=== PATIENT | male | born 1940 | race Caucasian/White ===

== ENCOUNTER 2017-03-02 09:58 | Inpatient (IN) | payer MEDICARE ==
[~2017-03-02] VITALS: Ht 185.4 cm; Wt 112.0 kg
[~2017-03-02 09:58] MED LIST: ASPI81TA82 PO; BIOTCAP PO; CENTTAB9 PO; SAW500CA6 PO; SELE200T2 PO
[2017-03-02 10:01] VITALS: BP 158/71; PULSE 72; RESP 15; TEMP 98.2; O2SAT 98
[2017-03-02] MEDS ORDERED: SODIUM CHLOR 0.9% 1000 ML INJ 1,000 ML IV ONE (10:34)
--- NOTE | 2017-03-02 10:42 | PD ---
HPI Chief Complaint: Laceration/Skin Injury Time Seen by Provider: 10:22 Travel History International Travel<30 days: No Contact w/Intl Traveler<30days: No Traveled to known affect area: No History of Present Illness HPI This patient was walking when he abruptly collapsed and fell. He has no idea why he fell. He was not having any presyncopal symptoms. There is no mechanical trip her stumble that he can remember. He fell and hit his face on the ground. He complains of facial and jaw pain and has a lower lip laceration. He does not have head or neck pain. At the same time as the fall he developed right arm weakness. Duration is one hour. Severity is moderate. No alleviating factors. He has no history of stroke. He takes a daily aspirin. He has no left arm or leg symptoms. No sensory loss or speech slurring or confusion. PFSH Past Medical History Arthritis: No Blood Disorders: No Anxiety: No Depression: No Cancer: Yes (prostate) Cardiovascular Problems: No Diabetes: No Genitourinary: No Hepatitis: Yes (a) Immune Disorder: No Musculoskeletal: Yes (bursitis) Neurologic: No Psychiatric: No Respiratory: No Tetanus Vaccination: Unknown Past Surgical History AICD: No Joint Replacement: No Pacemaker: No Social History Alcohol Use: No Tobacco Use: No Substance Use: No Allergies-Medications (Allergen,Severity, Reaction): Coded Allergies: No Known Allergies (Verified , 03/02/17) Reported Meds & Prescriptions Reported Meds & Active Scripts Active Reported Saw [place] 500 Mg Cap 500 Mg PO DAILY Centrum (Multivitamins) Tab 1 Tab PO DAILY Selenimin-200 (Selenium) 200 Mg Tab 200 Mg PO Biotin 5000 (Biotin) Cap 1 Cap PO Aspir-81 (Aspirin) 81 Mg Tab 81 Mg PO DAILY Review of Systems General / Constitutional: No: Fever Eyes: No: Visual changes HENT: No: Headaches Cardiovascular: No: Chest Pain or Discomfort Respiratory: No: Shortness of Breath Gastrointestinal: No: Abdominal Pain Genitourinary: No: Dysuria Musculoskeletal: Positive: Weakness, Pain Skin: No Rash Neurologic: Positive: Weakness Psychiatric: No: Depression Endocrine: No: Polydipsia Hematologic/Lymphatic: No: Easy Bruising Physical Exam Narrative GENERAL: Well-nourished, well-developed patient in no apparent distress. SKIN: Focused skin assessment reveals no rash and nodules. Skin is Warm and dry. HEAD: Has some swelling tenderness to the right cheek and TMJ area. Has a central lower lip laceration. There is some abrasion to the upper lip and nose. Normocephalic. EYES: Pupils equal and round. No scleral icterus. No injection or drainage. ENT: No nasal bleeding or discharge. Mucous membranes pink and moist. NECK: Trachea midline. No JVD. No midline tenderness CARDIOVASCULAR: Regular rate and rhythm. No murmur appreciated. RESPIRATORY: No accessory muscle use. Clear to auscultation. Breath sounds equal bilaterally. GASTROINTESTINAL: Abdomen soft, non-tender, nondistended. Hepatic and splenic margins not palpable. MUSCULOSKELETAL: No obvious deformities. No clubbing. No cyanosis. No edema. NEUROLOGICAL: Awake and alert. No obvious cranial nerve deficits. Has mild right arm weakness but no other deficit noted. Normal speech. Sensation intact. No facial droop PSYCHIATRIC: Appropriate mood and affect; insight and judgment normal. Data Data Last Documented VS Vital Signs Date Time Temp Pulse Resp B/P (MAP) Pulse Ox O2 Delivery O2 Flow Rate FiO2 03/02/17 10:51 70 16 142/75 (97) 98 Nasal Cannula 2.00 03/02/17 10:01 98.2 Orders Orders Diet Npo (03/02/17 Lunch) Activity Bed Rest (03/02/17 ) Electrocardiogram (03/02/17 ) I-Stat Creatinine (03/02/17 10:34) I-Stat Profile (03/02/17 10:34) Prothrombin Time / Inr (Pt) (03/02/17 10:34) Act Partial Throm Time (Ptt) (03/02/17 10:34) Complete Blood Count With Diff (03/02/17 10:34) Fibrinogen (03/02/17 10:34) Creatine Kinase (Cpk) (03/02/17 10:34) Type And Screen (03/02/17 10:34) Ct Brain W/O Iv Contrast(Rout) (03/02/17 ) Consult Neurology (03/02/17 ) Blood Glucose (03/02/17 10:34) Ecg Monitoring (03/02/17 10:34) Neuro Checks Q2HX12,Q4H (03/02/17 10:34) Nursing Bedside Swallow Assess .ONCE (03/02/17 10:34) Iv Access Insert/Monitor (03/02/17 10:34) NPO (03/02/17 10:34) Oximetry (03/02/17 10:34) Oxygen Administration (03/02/17 10:34) Sodium Chlor 0.9% 1000 Ml Inj (Ns 1000 M (03/02/17 10:34) Resp Oxygen [place] Titrat 1-4 L (03/02/17 10:34) Ct Facial Bones W/O Iv Cont (03/02/17 ) Lidocaine 1% Inj (50 Ml) (Xylocaine 1% I (03/02/17 11:00) (Hub Use Only)Inp Phy Cons/Ref (03/02/17 ) Morphine Inj (Morphine Inj) (03/02/17 12:00) Ondansetron Inj (Zofran Inj) (03/02/17 12:00) Admit Order (Ed Use Only) (03/02/17 12:28) Labs Laboratory Tests Test 03/02/17 09:15 White Blood Count 5.6 TH/MM3 Red Blood Count 4.27 MIL/MM3 Hemoglobin 14.7 GM/DL Bedside Hemoglobin 14.3 G/DL Hematocrit 42.6 % Bedside Hematocrit 42.0 % Mean Corpuscular Volume 100.0 FL Mean Corpuscular Hemoglobin 34.4 PG Mean Corpuscular Hemoglobin Concent 34.4 % Red Cell Distribution Width 12.6 % Platelet Count 184 TH/MM3 Mean Platelet Volume 7.6 FL Neutrophils (%) (Auto) 68.2 % Lymphocytes (%) (Auto) 20.0 % Monocytes (%) (Auto) 7.9 % Eosinophils (%) (Auto) 3.5 % Basophils (%) (Auto) 0.4 % Neutrophils # (Auto) 3.8 TH/MM3 Lymphocytes # (Auto) 1.1 TH/MM3 Monocytes # (Auto) 0.4 TH/MM3 Eosinophils # (Auto) 0.2 TH/MM3 Basophils # (Auto) 0.0 TH/MM3 CBC Comment DIFF FINAL Differential Comment Prothrombin Time 11.3 SEC Prothromb Time International Ratio 1.0 RATIO Activated Partial Thromboplast Time 26.1 SEC Fibrinogen 270 mg/dL Bedside Sodium 141 MMOL/L Bedside Potassium 3.8 MMOL/L Bedside Chloride 106 MMOL/L Bedside Blood Urea Nitrogen 14 MG/DL Bedside Creatinine 0.8 MG/DL Bedside Glucose 141 MG/DL Total Creatine Kinase 89 U/L MDM Medical Decision Making Medical Screen Exam Complete: Yes Emergency Medical Condition: Yes Medical Record Reviewed: Yes Differential Diagnosis CVA, TIA, syncope, facial fracture Narrative Course I have reviewed the patient's electronic medical record. Patient has history of prostate cancer and completed radiation therapy last year. IV placed I called the patient a stroke alert based on his right arm weakness I don't have any other etiology for abrupt onset of right arm weakness in the setting of syncope I sent him to the CT scanner and radiology paged His deficit is mild. He has mild right arm weakness His NIH score will be 1 based on this and no other objective findings Brain CT is negative for hemorrhage Facial bone CT reveals comminuted left mandible fracture CBC normal Metabolic profile is normal Coagulation studies are normal MELCHOR Shravan has repaired his lip laceration I reviewed his EKG which shows sinus rhythm without ectopy Extended cardiac monitoring reveals sinus rhythm without ectopy I discussed in detail with neurologist Dr. Sharma He agreed would not give TPA based on very mild right arm weakness has an isolated deficit I placed a call to medical residents to admit to telemetry unit for neurologic evaluation given his acute neurologic deficit as well as have his mandible fracture addressed Critical Care Narrative Aggregate critical care time was 34 minutes. Time to perform other separately billable procedures was not included in the critical care time. My time did not include minutes spent treating any other patients simultaneously or on activities that did not directly contribute to the patient's treatment. The services I provided to this patient were to treat and/or prevent clinically significant deterioration that could result in: Hemorrhagic contusion, permanent neurologic deficit, brain stem herniation I provided critical care services requiring my management, as noted below: Chart data review, documentation time, medication orders and management, vital sign assessments/reviewing monitor data, ordering and reviewing lab tests, ordering and interpreting/reviewing x-rays and diagnostic studies, care of the patient and discussion of the patient with the admitting physicians. Diagnosis Primary Impression: Ischemic stroke of frontal lobe Additional Impressions: Fracture of mandible Qualified Codes: S02.612A - Fracture of condylar process of left mandible, initial encounter for closed fracture Syncope Qualified Codes: R55 - Syncope and collapse Admitting Information Admitting Physician Requests: Admit Ozzie Card MD Mar 02, 2017 10:41
[2017-03-02 10:51] VITALS: BP 142/75; PULSE 70; RESP 16; O2SAT 98
--- NOTE | 2017-03-02 10:55 | RADRPT ---
EXAM DATE/TIME: 03/02/2017 10:34 [facility] COMPARISON: No previous studies available for comparison. INDICATIONS : Stroke alert, right sided weakness and slurred speech. RADIATION DOSE: 45.83 CTDIvol (mGy) This report was called by Enrique Marvin MD to Dr. Card at 1048 MEDICAL HISTORY : None SURGICAL HISTORY : None. ENCOUNTER: Initial ACUITY: 1 day PAIN SCALE: 0/10 LOCATION: cranial TECHNIQUE: Multiple contiguous axial images were obtained of the head. Using automated exposure control and adj ustment of the mA and/or kV according to patient size, radiation dose was kept as low as reasonably a chievable to obtain optimal diagnostic quality images. DICOM format image data is available electro nically for review and comparison. FINDINGS: CEREBRUM: The ventricles are normal for age. No evidence of midline shift, mass lesion, hemorrhage or acute in farction. No extra-axial fluid collections are seen. POSTERIOR FOSSA: The cerebellum and brainstem are intact. The 4th ventricle is midline. The cerebellopontine angle i s unremarkable. EXTRACRANIAL: The visualized portion of the orbits is intact. SKULL: The calvaria is intact. No evidence of skull fracture. CONCLUSION: 1. No evidence of acute intracranial pathology. No masses are identified. Enrique Marvin MD on March 02, 2017 at 10:47 Board Certified Radiologist. This report was verified electronically.
[2017-03-02] MEDS ORDERED: LIDOCAINE HCL 1% 50 ML VIAL INFIL ONE (11:00)
--- NOTE | 2017-03-02 11:02 | RADRPT ---
EXAM DATE/TIME: 03/02/2017 10:34 [facility] COMPARISON: No previous studies available for comparison. INDICATIONS : Trauma, fall. RADIATION DOSE: 36.48 CTDIvol (mGy) MEDICAL HISTORY : None SURGICAL HISTORY : None. ENCOUNTER: Initial ACUITY: 1 day PAIN SCORE: 0/10 LOCATION: facial TECHNIQUE: Volumetric scanning of the facial bones was performed. Using automated exposure control and adjustme nt of the mA and/or kV according to patient size, radiation dose was kept as low as reasonably achiev able to obtain optimal diagnostic quality images. DICOM format image data is available electronicall y for review and comparison. FINDINGS: ORBITS: The orbital and infraorbital osseous structures are intact. The retroconal structures have a normal configuration. No radiopaque foreign bodies are seen. NASAL BONE: The nasal bone and maxillary spine are intact ZYGOMATIC ARCHES: Symmetric without evidence of fracture. SINUSES: Mild mucoperiosteal thickening, mostly the ethmoid air cells. NASAL CAVITY: The nasal septum is intact and midline. The lacrimal ducts are intact. SOFT TISSUES: There is a contusion/hematoma and probable laceration in the soft tissues overlying the chin. INTRACRANIAL: No intracranial air seen. CRIBIFORM PLATE: Grossly intact. Comminuted fracture seen of the left mandibular ramus and base of the condyle. The fracture is mildly buckled with some resultant lateral apex angulation deformity, for example series 304 image 46. Cond yle articular surface intact. There is evidence of considerable pre-existing bilateral temporomandibu lar joint osteoarthritis. CONCLUSION: 1. Comminuted and mildly displaced fracture of the left mandibular ramus and base of the condyle. 2. Severe bilateral temporomandibular joint osteoarthritis. 3. Submental contusion/hematoma. Haris Yusuf MD on March 02, 2017 at 10:55 Board Certified Radiologist. This report was verified electronically.
[2017-03-02 11:05] LABS: AUTOMATED NEUTROPHIL # 3.8 TH/MM3 (1.8-7.7); BASOPHIL % 0.4 % (0.0-2.0); EOSINOPHIL # 0.2 TH/MM3 (0-0.4); EOSINOPHIL % 3.5 % (0.0-4.0); HEMATOCRIT 42.6 % (39.0-51.0); HEMO FLAGS DIFF FINAL; LYMPHOCYTE # 1.1 TH/MM3 (1.0-4.8); MEAN CORPUSCULAR HEMOGLOBIN 34.4 PG (27.0-34.0); MEAN CORPUSCULAR HGB CONC 34.4 % (32.0-36.0); MONO % 7.9 % (0.0-8.0); NEUT % 68.2 % (16.0-70.0); PLATELET COUNT 184 TH/MM3 (150-450); RED BLOOD COUNT 4.27 MIL/MM3 (4.50-5.90); RED CELL DISTRIBUTION WIDTH 12.6 % (11.6-17.2); WHITE BLOOD COUNT 5.6 TH/MM3 (4.0-11.0)
[2017-03-02 11:11] LABS: I-STAT POTASSIUM 3.8 MMOL/L (3.5-4.9)
[2017-03-02 11:15] LABS: APTT (PATIENT) 26.1 SEC (24.3-30.1); PROTHROMBIN TIME - PATIENT 11.3 SEC (9.8-11.6)
--- NOTE | 2017-03-02 11:35 | PD ---
Physical Exam Time Seen by Provider: 11:10 Data Data Last Documented VS Vital Signs Date Time Temp Pulse Resp B/P (MAP) Pulse Ox O2 Delivery O2 Flow Rate FiO2 03/02/17 10:51 70 16 142/75 (97) 98 Nasal Cannula 2.00 03/02/17 10:01 98.2 Orders Orders Diet Npo (03/02/17 Lunch) Activity Bed Rest (03/02/17 ) Electrocardiogram (03/02/17 ) I-Stat Creatinine (03/02/17 10:34) I-Stat Profile (03/02/17 10:34) Prothrombin Time / Inr (Pt) (03/02/17 10:34) Act Partial Throm Time (Ptt) (03/02/17 10:34) Complete Blood Count With Diff (03/02/17 10:34) Fibrinogen (03/02/17 10:34) Creatine Kinase (Cpk) (03/02/17 10:34) Type And Screen (03/02/17 10:34) Ct Brain W/O Iv Contrast(Rout) (03/02/17 ) Consult Neurology (03/02/17 ) Blood Glucose (03/02/17 10:34) Ecg Monitoring (03/02/17 10:34) Neuro Checks Q2HX12,Q4H (03/02/17 10:34) Nursing Bedside Swallow Assess .ONCE (03/02/17 10:34) Iv Access Insert/Monitor (03/02/17 10:34) NPO (03/02/17 10:34) Oximetry (03/02/17 10:34) Oxygen Administration (03/02/17 10:34) Sodium Chlor 0.9% 1000 Ml Inj (Ns 1000 M (03/02/17 10:34) Resp Oxygen [place] Titrat 1-4 L (03/02/17 10:34) Ct Facial Bones W/O Iv Cont (03/02/17 ) Lidocaine 1% Inj (50 Ml) (Xylocaine 1% I (03/02/17 11:00) (Hub Use Only)Inp Phy Cons/Ref (03/02/17 ) Labs Laboratory Tests Test 03/02/17 09:15 White Blood Count 5.6 TH/MM3 Red Blood Count 4.27 MIL/MM3 Hemoglobin 14.7 GM/DL Bedside Hemoglobin 14.3 G/DL Hematocrit 42.6 % Bedside Hematocrit 42.0 % Mean Corpuscular Volume 100.0 FL Mean Corpuscular Hemoglobin 34.4 PG Mean Corpuscular Hemoglobin Concent 34.4 % Red Cell Distribution Width 12.6 % Platelet Count 184 TH/MM3 Mean Platelet Volume 7.6 FL Neutrophils (%) (Auto) 68.2 % Lymphocytes (%) (Auto) 20.0 % Monocytes (%) (Auto) 7.9 % Eosinophils (%) (Auto) 3.5 % Basophils (%) (Auto) 0.4 % Neutrophils # (Auto) 3.8 TH/MM3 Lymphocytes # (Auto) 1.1 TH/MM3 Monocytes # (Auto) 0.4 TH/MM3 Eosinophils # (Auto) 0.2 TH/MM3 Basophils # (Auto) 0.0 TH/MM3 CBC Comment DIFF FINAL Differential Comment Prothrombin Time 11.3 SEC Prothromb Time International Ratio 1.0 RATIO Activated Partial Thromboplast Time 26.1 SEC Fibrinogen 270 mg/dL Bedside Sodium 141 MMOL/L Bedside Potassium 3.8 MMOL/L Bedside Chloride 106 MMOL/L Bedside Blood Urea Nitrogen 14 MG/DL Bedside Creatinine 0.8 MG/DL Bedside Glucose 141 MG/DL [facility] Medical Record Reviewed: Yes Supervised Visit with ADI: No Narrative Course Patient has a laceration to the inner mucosa of the lower lip, laceration was repaired with absorbable sutures, he verbally consented. Procedures Procedure Narrative LACERATION LOCATION: Lower lip LENGTH: 1.5 cm NUMBER OF STITCHES/ELMER: 8 REPAIR: The area of the laceration was prepped with Betadine and sterilely draped. The laceration was infiltrated with 1% lidocaine. The wound was copiously irrigated and explored without evidence of foreign body, tendon injury or neurovascular injury. The wound was closed using 5-0 fast absorbing chromic simple interrupted. This was a single layer repair. A sterile dressing was applied. The patient was advised to keep the dressing clean and dry. Patient tolerated the procedure well. Shravan Mason Mar 02, 2017 11:35
[2017-03-02] MEDS ORDERED: ONDANSETRON HCL 4 MG/2 ML VIAL IV ONE (12:00)
[2017-03-02] MEDS ORDERED: MORPHINE SULFATE 4 MG/ML INJ IV PUSH ONE (12:00)
[2017-03-02] MEDS ORDERED: HYDROmorphone HCL PF 1 MG/ML VIAL IV PRN (13:15)
[2017-03-02] MEDS ORDERED: SENNOSIDES 8.6 MG TAB PO PRN (13:15)
[2017-03-02] MEDS ORDERED: SODIUM CHLORIDE 0.9% FLUSH 10 ML FLUSH IV FLUSH PRN (13:15)
[2017-03-02] MEDS ORDERED: KETOROLAC TROMETHAMINE 30 MG/ML (IVP) VIAL IVP PRN ×2 (13:15→19:15)
[2017-03-02] MEDS ORDERED: BISACODYL 10 MG SUPP RECTAL PRN (13:15)
[2017-03-02] MEDS ORDERED: LACTULOSE SYRUP 20 GM/30 ML CUP PO PRN (13:15)
[2017-03-02] MEDS ORDERED: MAGNESIUM HYDROXIDE SUSP 30 ML CUP PO PRN (13:15)
[2017-03-02] MEDS ORDERED: MORPHINE SULFATE 4 MG/ML INJ IV PUSH PRN (13:15)
[2017-03-02] MEDS ORDERED: ACETAMINOPHEN 325 MG TAB PO PRN (13:15)
[2017-03-02] MEDS ORDERED: ONDANSETRON HCL 4 MG/2 ML VIAL IVP PRN (13:15)
[2017-03-02] MEDS: SODIUM CHLOR 0.9% 1000 ML INJ 1,000 ML IV SCH (13:15)
[2017-03-02] MEDS ORDERED: NALOXONE HCL 0.4 MG/ML AMP IV PRN ×2 (13:15)
--- NOTE | 2017-03-02 13:31 | HHI.HP ---
HPI Service Family Medicine Primary Care Physician Guy Parker MD Admission Diagnosis stroke alert, L mandible fx, syncope Diagnoses: (1) Fracture of mandible Diagnosis: Principal Chief Complaint: fall with mandibular fracture and lip laceration International Travel<30 Days: No Contact w/Intl Traveler<30days: No Known Affected Area: No History of Present Illness Mr Benitez is a 75 YO male w/PMHx of prostate cancer and recent cataract surgery (October and December) who fell in the [facility] parking lot today breaking his jaw and splitting open his lip. Pt states he might have tripped over something in the parking lot and had his hands full, otherwise he might have caught his fall but is sure he did not have a syncopal or presyncopal episode. Pt is alert and oriented and attended by his who state he has been very healthy all his life. Pt has jaw and lip pain from the fall as well as some right arm stiffness and mild pain. Denies CP, SOB, dizziness, orthopnea, DVT pain, N/V/D. Also denies neuro deficits or hx of falls or syncope or pre-syncope. CT head shows no evidence of CVA; Maxillofacial CT shows comminuted and mildly displaced fracture of the left mandibular ramus and base of the condyle. (Brendon Winter MD R1) Review of Systems Other as per HPI (Brendon Winter MD R1) Past Family Social History Past Medical History prostate cancer Past Surgical History left shoulder septic joint washout 2005 Reported Medications Reported Meds & Active Scripts Active Reported Saw [place] 500 Mg Cap 500 Mg PO DAILY Centrum (Multivitamins) Tab 1 Tab PO DAILY Selenimin-200 (Selenium) 200 Mg Tab 200 Mg PO Biotin 5000 (Biotin) 5 Mg Cap 1 Cap PO Aspir-81 (Aspirin) 81 Mg Tab 81 Mg PO DAILY (Brendon Winter MD R1) Allergies: Coded Allergies: No Known Allergies (Verified , 03/02/17) Active Ordered Medications Current Medications Medications (Trade) Dose Ordered Sig/Dominic Route Start Time Stop Time Status Last Admin Sodium Chloride 1,000 ml @ 100 mls/hr Q10H IV 03/02/17 13:11 03/02/17 13:15 (NS Flush) 2 ml UNSCH PRN IV FLUSH 03/02/17 13:15 (NS Flush) 2 ml BID IV FLUSH 03/02/17 21:00 (Tylenol) 650 mg Q4H PRN PO 03/02/17 13:15 (Zofran Inj) 4 mg Q6H PRN IVP 03/02/17 13:15 (Lovenox Inj) 40 mg Q24H SQ 03/02/17 16:00 Future Hold (Yoselyn-Colace) 1 tab BID PO 03/02/17 21:00 (Milk Of Magnesia Liq) 30 ml Q12H PRN PO 03/02/17 13:15 (Senokot) 17.2 mg Q12H PRN PO 03/02/17 13:15 (Dulcolax Supp) 10 mg DAILY PRN RECTAL 03/02/17 13:15 (Lactulose Liq) 30 ml DAILY PRN PO 03/02/17 13:15 (Narcan Inj) 0.4 mg UNSCH PRN IV 03/02/17 13:15 (Morphine Inj) 2 mg Q3H PRN IV PUSH 03/02/17 13:15 (Dilaudid Pf Inj) 0.5 mg Q3H PRN IV 03/02/17 13:15 (Ofirmev 1000 Mg/ 100 ml Inj) 1,000 mg Q6H IV 03/02/17 17:00 03/03/17 11:01 03/02/17 17:15 (Toradol Inj) 15 mg Q6H PRN IVP 03/02/17 19:15 03/07/17 19:14 Family History Father - HTN Social History No EtOH, tobacco or drugs. Lives with his . 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 (Brendon Winter MD R1) Physical Exam Vital Signs Vital Signs Date Time Temp Pulse Resp B/P (MAP) Pulse Ox O2 Delivery O2 Flow Rate FiO2 03/02/17 10:51 70 16 142/75 (97) 98 Nasal Cannula 2.00 03/02/17 10:15 98 Nasal Cannula 2.00 03/02/17 10:01 98.2 72 15 158/71 (100) 98 Physical Exam GENERAL: This is a well-nourished, well-developed patient, in no apparent distress with a lip laceration. SKIN: No rashes. Cool and dry. HEAD: Atraumatic. Normocephalic. No temporal or scalp tenderness. Lip laceration. Slightly asymmetric smile with less smile on the right. EYES: Pupils equal round and reactive. Extraocular motions intact. No scleral icterus. No injection or drainage. ENT: Nose without bleeding, purulent drainage or septal hematoma. Throat without erythema, tonsillar hypertrophy or exudate. Uvula midline. Airway patent. NECK: Trachea midline. No lymphadenopathy. Supple, nontender, no meningeal signs. CARDIOVASCULAR: Regular rate and rhythm without murmurs, gallops, or rubs. RESPIRATORY: Clear to auscultation. Breath sounds equal bilaterally. No wheezes , rales, or rhonchi. No increased WOB. GASTROINTESTINAL: Abdomen soft, non-tender, nondistended. No hepato-splenomegaly , or palpable masses. No guarding. MUSCULOSKELETAL: Extremities without clubbing, cyanosis, or edema. 5/5 strength in bilateral LEs; however, 4/5 strength in RUE. No joint tenderness, effusion, or edema noted. No calf tenderness. NEUROLOGICAL: Awake and alert. Cranial nerves II through XII intact. Sensory grossly within normal limits. Normal speech. Laboratory Laboratory Tests Test 03/02/17 09:15 White Blood Count 5.6 Red Blood Count 4.27 Hemoglobin 14.7 Bedside Hemoglobin 14.3 Hematocrit 42.6 Bedside Hematocrit 42.0 Mean Corpuscular Volume 100.0 Mean Corpuscular Hemoglobin 34.4 Mean Corpuscular Hemoglobin Concent 34.4 Red Cell Distribution Width 12.6 Platelet Count 184 Mean Platelet Volume 7.6 Neutrophils (%) (Auto) 68.2 Lymphocytes (%) (Auto) 20.0 Monocytes (%) (Auto) 7.9 Eosinophils (%) (Auto) 3.5 Basophils (%) (Auto) 0.4 Neutrophils # (Auto) 3.8 Lymphocytes # (Auto) 1.1 Monocytes # (Auto) 0.4 Eosinophils # (Auto) 0.2 Basophils # (Auto) 0.0 CBC Comment DIFF FINAL Differential Comment Prothrombin Time 11.3 Prothromb Time International Ratio 1.0 Activated Partial Thromboplast Time 26.1 Fibrinogen 270 Bedside Sodium 141 Bedside Potassium 3.8 Bedside Chloride 106 Bedside Blood Urea Nitrogen 14 Bedside Creatinine 0.8 Bedside Glucose 141 Total Creatine Kinase 89 (Brendon Winter MD R1) Result Diagram: 03/02/17 0915 Imaging Last Impressions Maxillofacial CT 03/02/17 0000 Signed Impressions: Service Date/Time: Thursday, March 02, 2017 10:34 - CONCLUSION: 1. Comminuted and mildly displaced fracture of the left mandibular ramus and base of the condyle. 2. Severe bilateral temporomandibular joint osteoarthritis. 3. Submental contusion/hematoma. Haris Yusuf MD Head CT 03/02/17 0000 Signed Impressions: Service Date/Time: Thursday, March 02, 2017 10:34 - CONCLUSION: 1. No evidence of acute intracranial pathology. No masses are identified. Enrique Marvin MD (Brendon Winter MD R1) Caprini VTE Risk Assessment Caprini VTE Risk Assessment: No/Low Risk (score <= 1) VTE Pharm Contraindication: Lovenox held due to surgery on 03/03 (Brendon Winter MD R1) Assessment and Plan Assessment and Plan 76 YO male w/PMHx prostate cancer and left shoulder septic joint in 2005 with fall today vs CVA resulting in mandibular fracture, lip laceration and right arm weakness. Neurology saw in ED and Head CT shows no evidence of CVA. Code Status FULL Discussed Condition With Rajiv Bustos and June (Brendon Winter MD R1) Attending Attestation The patient has been seen and examined. The chart and all resident notes have been reviewed. I agree that inpatient care is appropriate and that a two midnight stay is expected for the reasons documented in the resident history and physical. I have discussed this with the resident and certify the resident s order for inpatient admission. Patient seen and examined. Case reviewed and discussed Please refer to resident H&P for further details regarding HPI, ROS, PMH, SurgHx , FH and SocHx All systems reviewed and neg except as stated in the HPI In summary, patient is a 76yo R handed M presenting after a fall forward onto his face with subsequent displaced mandibular fracture He reports he was walking at [employer] and fell He reports pain is improved with medication Does have some R sided weakness GENERAL: wdwn male, sitting up in bed SKIN: Warm and dry. HEAD: Normocephalic. AT EYES: No scleral icterus. No injection or drainage. ENT: OP clear. Lower lip s/p lac repair. Hemostatic NECK: Supple, trachea midline. No JVD or lymphadenopathy. CARDIOVASCULAR: Regular rate and rhythm without murmurs, gallops, or rubs. RESPIRATORY: Breath sounds equal and clear bilaterally. No accessory muscle use. GASTROINTESTINAL: Abdomen soft, non-tender, nondistended. MUSCULOSKELETAL: No cyanosis, or edema. BACK: Nontender without obvious deformity. No CVA tenderness. NEURO: Awake and alert. Normal speech. Sensation intact and equal bilaterally RUE 4/5, LUE 5/5. Bilateral LE 5/5 A/P: 76yoM admitted with: Displace mandibular fracture Lip laceration R sided weakness Fall Hx Prostate CA OMF consultation Pain control Stroke protocol Neuro consult Patient seen and examined. Case reviewed and discussed Agree with plan of care as discussed with me and documented in the resident note. (Carolyne Bustos MD) Problem List: (1) Fracture of mandible ICD Codes: S02.609A - Fracture of mandible, unspecified, initial encounter for closed fracture Status: Acute Plan: CT showing fracture of mandible -Oromaxillofacial surgery consulted--OR tomorrow--appreciate recs -NPO at midnight -Swallowing intact -Pain control: --Tylenol 1000mg IV --Torodol 15 mg q6h IV PRN pain 1-5 --Morphine 2 mg q4h IV PRN pain 6-10 --Dilaudid 0.1 mg IV PRN breakthru pain -AM CBC and BMP (2) Right arm weakness ICD Codes: R29.898 - Other symptoms and signs involving the musculoskeletal system Status: Acute Plan: Right arm weakness s/p fall vs CVA; decreased strength and active ROM on exam--DDx: CVA vs fall trauma to include rotator cuff tear -Neuro checks q4h to probe for increasing weakness w/negative Head CT -Will assess ROM following jaw surgery tomorrow to probe for possible rotator cuff pathology (3) Lip laceration ICD Codes: S01.511A - Laceration without foreign body of lip, initial encounter Status: Acute Plan: -Repaired in ED -Monitor (4) FEN/GI/PPx Status: Acute Plan: -DVT PPx: Holding Lovenox 40 mg /day until after surgery -NPO at midnight as above; diet after surgery as per surgery recs -Colace and Milk of Magnesia for opioid induced constipation -Zofran IV for nausea (Brendon Winter MD R1) Physician Certification 2 Midnight Certification Type: Admission for Inpatient Services Order for Inpatient Services The services are ordered in accordance with Medicare regulations or non- Medicare payer requirements, as applicable. In the case of services not specified as inpatient-only, they are appropriately provided as inpatient services in accordance with the 2-midnight benchmark. Estimated LOS (days): 2 days is the estimated time the patient will need to remain in the hospital, assuming treatment plan goals are met and no additional complications. Post-Hospital Plan: Home (Brendon Winter MD R1) Problem Qualifiers (1) Fracture of mandible: Qualified Codes: S02.612A - Fracture of condylar process of left mandible, initial encounter for closed fracture (2) Lip laceration: Qualified Codes: S01.511A - Laceration without foreign body of lip, initial encounter Brendon Winter MD R1 Mar 02, 2017 13:31 Carolyne Bustos MD Mar 02, 2017 23:11
--- NOTE | 2017-03-02 13:53 | EKG ---
Date Performed: 03/02/2017 Time Performed: 10:21:14 PTAGE: 76 years EKG: Sinus rhythm MARKED LEFT AXIS DEVIATION PATTERN CONSISTENT WITH PULMONARY DISEASE ABNORMAL ECG Compared to prior tracing no significant change PREVIOUS TRACING : 11/22/2015 06.51 DOCTOR: Felice Byrd Interpretating Date/Time 03/02/2017 13:48:49
--- NOTE | 2017-03-02 14:21 | MB ---
cc: IRINEO CRONIN MD DATE OF CONSULTATION: 03/02/2017 REASON FOR CONSULTATION Stroke Alert. HISTORY OF PRESENT ILLNESS Mr. Waller is a 76-year-old male who presented to the [facility] Emergency Room for what he reports he abruptly collapsed and fell. The patient denies any headache, disorientation, double vision, lightheadedness or racing heart prior to the fall. He thinks that he stepped on uneven ground and he fell on the right side and presented with right arm pain and laceration of his face and jaw. He denies history of seizures or syncope or previous falls.There is no reported loss of bladder control, convulsions or confusional state. This was called as a Stroke Alert by the ED attending. The patient's NIH Stroke Scale was 1. A head CT scan without contrast revealed no evidence of acute intracranial pathology; however, the patient was not deemed a candidate for TPA because of the low NIH Stroke Scale. The patient is on daily aspirin 81 mg. REVIEW OF SYSTEMS A 12-point review of systems is negative except for what is stated in the HPI. PAST MEDICAL HISTORY Prostate cancer, status post radiation. PAST SURGICAL HISTORY Post radiation for prostate cancer. SOCIAL HISTORY Denies alcohol, tobacco or substance abuse. ALLERGIES No known drug allergies. MEDICATIONS 1. Saw [place]. 2. Centrum. 3. Selenium. 4. Biotin. 5. Aspirin 81 mg. FAMILY HISTORY Noncontributory. PHYSICAL EXAMINATION GENERAL: Awake, alert, oriented, in mild distress. HEENT: Swelling and tenderness of the right cheek area. Lower lip laceration and abrasion. Intact hearing. Intact vision. NECK: Trachea in the midline. No signs of meningeal irritation. HEART: Regular rate and rhythm. LUNGS: Clear to auscultation. No wheezes. ABDOMEN: Soft, nondistended. EXTREMITIES: No deformity. No clubbing. No cyanosis. Moves extremities with some pain in the right upper extremity. NEUROLOGIC: Awake, alert, oriented to time, person and place. No dysphasia. No dysarthria. Questionable right facial weakness. Questionable right elbow extension weakness with give-way due to pain. Questionable wrist extension, 5-/ 5. Intact sensation throughout to light touch and temperature. Cerebellar functions are intact. Upper and lower extremity reflexes 2+ bilateral and symmetrical. Plantars right upgoing, left mute. PSYCHIATRIC: Normal behavior. Appropriate mood and affect. No hallucinations. LABORATORY White blood cell count 5.6, hemoglobin 14.7, platelet count 184. INR 1. Sodium 141, potassium 3.8, glucose 148, BUN 14, creatinine 0.8. IMAGING - Head CT scan wo/contrast revealed no evidence of an acute intracranial abnormality. DIAGNOSTIC IMPRESSION 1. TIA versus stroke. 2. Fracture of the mandible. 3. History of prostate cancer, status post radiation PLAN 1. Neuro-checks q.4h. 2. MRI brain. If MRI brain is negative, no need to pursue further stroke work- up unless this is positive then will do carotid ultrasound and echo according to the stroke protocol. I discussed this with the hospitalist and registered nurse. 3. The patient is not a TPA candidate given the low NIH Stroke Scale. 4. DVT prophylaxis. 5. Continue supportive medical and surgical treatment. Thank you for the opportunity to participate in the care of your patient. MD SANDRA Coates/TED /1:32 PM /1:54 PM MAKENZIE
[2017-03-02] MEDS ORDERED: ENOXAPARIN SODIUM 40 MG/0.4 ML SYRINGE SQ SCH (16:00)
[2017-03-02 17:00] VITALS: BP 137/74; PULSE 77; RESP 18; TEMP 98.4; O2SAT 100
[2017-03-02] MEDS: ACETAMINOPHEN 1000 MG/100 ML VIAL IV SCH (17:15)
--- NOTE | 2017-03-02 17:47 | MB ---
cc: BROCK HARO D.D.S. DATE OF CONSULTATION: 03/02/2017 DATE OF : 1940. SURGEON: Brock Haro DDS, maxillofacial surgery. REASON FOR CONSULTATION I was asked to evaluate a 76-year-old white male status post a fall today striking his chin on the ground, sustained a fracture of his left subcondylar / ramus region. They felt the patient may have had a stroke but apparently most of his studies been negative. He is being admitted my plan for him is to take him to the operating room tomorrow. Due to the location of the fracture unable to do an open reduction internal fixation. The only way to treat it is with a closed reduction, by putting his teeth together in some arch bars, and to wire the let the teeth come back together which will align the bones back up, he has an anterior open bite at the moment and will heal this way we are unable to bring his teeth back into occlusion. I explained this to him and his significant other in the room. We will make him NPO after midnight tonight and plan to take him tomorrow for closed reduction of his fracture. LIMA Serra/deidre /5:10 PM /5:33 PM
[2017-03-02] MEDS: DOCUSATE SODIUM 50 MG/SENNA 8.6 MG TAB PO SCH (20:51)
[2017-03-02] MEDS: SODIUM CHLORIDE 0.9% FLUSH 10 ML FLUSH IV FLUSH SCH (20:51)
[2017-03-02 21:56] VITALS: BP 140/72; PULSE 72; RESP 16; TEMP 99.1; O2SAT 98
[2017-03-03] VITALS (7 sets, daily range): BP systolic 109–167; BP diastolic 57–79; PULSE 58–64; RESP 16–18; TEMP 97.6–98.6; O2SAT 94–98
[2017-03-03] MEDS: ACETAMINOPHEN 1000 MG/100 ML VIAL IV SCH ×3 (00:25→11:22)
[2017-03-03] MEDS: SODIUM CHLOR 0.9% 1000 ML INJ 1,000 ML IV SCH ×3 (00:25→19:11)
[2017-03-03] MEDS: DOCUSATE SODIUM 50 MG/SENNA 8.6 MG TAB PO SCH ×2 (07:49→20:59)
[2017-03-03] MEDS: SODIUM CHLORIDE 0.9% FLUSH 10 ML FLUSH IV FLUSH SCH ×2 (07:50→21:00)
[2017-03-03] MEDS ORDERED: CHLORHEXIDINE GLUCONATE 2 % 1 PACK (2 CLOTHS) TOPICAL PRN (08:00)
[2017-03-03] MEDS ORDERED: POVIDONE IODINE 5% (ANTISEPSIS KIT) 4 APPLICATIONS EACH NARE PRN (08:00)
[2017-03-03] MEDS ORDERED: METOPROLOL TARTRATE 25 MG TAB PO PRN (08:00)
[2017-03-03] MEDS ORDERED: INSULIN HUMAN REGULAR 1,000 UNITS/10 ML VIAL SQ PRN (08:00)
[2017-03-03] MEDS ORDERED: LACTATED RINGER'S 1000 ML IV PRN (08:00)
[2017-03-03] MEDS ORDERED: SODIUM CHLORID 0.9% 500 ML IV PRN (08:00)
[2017-03-03 09:54] LABS: AUTOMATED NEUTROPHIL # 5.3 TH/MM3 (1.8-7.7); BASOPHIL % 0.4 % (0.0-2.0); EOSINOPHIL # 0.1 TH/MM3 (0-0.4); EOSINOPHIL % 1.5 % (0.0-4.0); HEMATOCRIT 40.6 % (39.0-51.0); HEMO FLAGS DIFF FINAL; LYMPH % 16.3 % (9.0-44.0); LYMPHOCYTE # 1.2 TH/MM3 (1.0-4.8); MEAN CELL VOLUME 99.9 FL (80.0-100.0); MEAN CORPUSCULAR HEMOGLOBIN 34.1 PG (27.0-34.0); MEAN CORPUSCULAR HGB CONC 34.1 % (32.0-36.0); MONO % 9.2 % (0.0-8.0); NEUT % 72.6 % (16.0-70.0); PLATELET COUNT 176 TH/MM3 (150-450); RED BLOOD COUNT 4.07 MIL/MM3 (4.50-5.90); RED CELL DISTRIBUTION WIDTH 12.8 % (11.6-17.2); WHITE BLOOD COUNT 7.4 TH/MM3 (4.0-11.0)
[2017-03-03 10:04] LABS: BICARBONATE 25.6 MEQ/L (21.0-32.0); POTASSIUM 3.9 MEQ/L (3.5-5.1)
[2017-03-03] MEDS ORDERED: ONDANSETRON HCL 4 MG/2 ML VIAL IV PUSH ONE (12:00)
[2017-03-03] MEDS ORDERED: NEOSTIGMINE 3 MG/3 ML SYR IV ONE (12:00)
[2017-03-03] MEDS ORDERED: LACTATED RINGER'S 1000 ML INJ 1,000 ML IV ONE (12:00)
[2017-03-03] MEDS ORDERED: PROPOFOL 200 MG/20 ML AMP IV ONE (12:00)
--- NOTE | 2017-03-03 12:29 | RADRPT ---
EXAM DATE/TIME: 03/03/2017 09:08 [place] COMPARISON: No previous studies available for comparison. INDICATIONS : Altered mental status. MEDICAL HISTORY : Carcinoma, prostate. SURGICAL HISTORY : Left shoulder ENCOUNTER: Initial ACUITY: 2 day PAIN SCORE: 2/10 LOCATION: head TECHNIQUE: Multiplanar, multisequence MRI of the brain was performed without contrast. FINDINGS: CEREBRUM: The ventricles are normal for age. No evidence of midline shift, mass lesion, hemorrhage or acute in farction. No extraaxial fluid collections are seen. The pituitary gland and suprasellar cistern are normal in configuration. WHITE MATTER: No significant signal abnormalities are seen in the white matter. POSTERIOR FOSSA: The cerebellum and brainstem are intact. The 4th ventricle is midline. The cerebellopontine angle is unremarkable. The cerebellar tonsils are normal in position. DIFFUSION IMAGING: No focal areas of restricted diffusion are seen. No evidence of acute infarction. EXTRACRANIAL: The visualized portions of the orbits and paranasal sinuses are unremarkable. CONCLUSION: Negative MRI of the brain without contrast. Jordy Upton MD on March 03, 2017 at 12:15 Board Certified Radiologist. This report was verified electronically.
--- NOTE | 2017-03-03 15:11 | HHI.FPPN ---
Subjective Remarks Mr Benitez is feeling better today, still with pain in his jaw and wants surgery to come fix it right away. He is taking PO, ambulating, voiding, but no BM or flatus. He still has some weakness of his RUE from the elbow to the fingers, but denies soreness/tenderness near the rotator cuff or any neurological deficits. AFVSS. He denies CP, SOB, N/V/D, and DVT pain. He sustained a small laceration on the lateral left knee during the fall yesterday with a healing scab. (Brendon Winter MD R1) Objective Vitals Vital Signs Date Time Temp Pulse Resp B/P (MAP) Pulse Ox O2 Delivery O2 Flow Rate FiO2 03/03/17 08:00 98.6 63 18 136/72 (93) 95 03/03/17 06:30 98.5 64 18 136/61 (86) 94 03/03/17 01:56 98.6 62 16 109/57 (74) 95 03/02/17 21:56 99.1 72 16 140/72 (94) 98 03/02/17 17:00 98.4 77 18 137/74 (95) 100 03/02/17 16:38 67 15 99 Nasal Cannula 2.00 I/O 03/02/17 03/02/17 03/02/17 03/03/17 03/03/17 03/03/17 07:00 15:00 23:00 07:00 15:00 23:00 Intake Total 400 ml Output Total 300 ml Balance 400 ml -300 ml Intake IV Total 400 ml Output Urine Total 300 ml # Bowel Movements 0 (Brendon Winter MD R1) Result Diagram: 03/03/17 0842 03/03/17 0842 Imaging Last Impressions Brain MRI 03/03/17 0000 Signed Impressions: Service Date/Time: Friday, March 03, 2017 09:08 - CONCLUSION: Negative MRI of the brain without contrast. Jordy Upton MD Maxillofacial CT 03/02/17 0000 Signed Impressions: Service Date/Time: Thursday, March 02, 2017 10:34 - CONCLUSION: 1. Comminuted and mildly displaced fracture of the left mandibular ramus and base of the condyle. 2. Severe bilateral temporomandibular joint osteoarthritis. 3. Submental contusion/hematoma. Haris Yusuf MD Head CT 03/02/17 0000 Signed Impressions: Service Date/Time: Thursday, March 02, 2017 10:34 - CONCLUSION: 1. No evidence of acute intracranial pathology. No masses are identified. Enrique Marvin MD Objective Remarks GENERAL: Well-nourished, well-developed patient in NAD. SKIN: Warm and dry. Healing scab on left lateral knee. HEAD: Normocephalic. Healing laceration of midline lower lip. EYES: No scleral icterus. No injection or drainage. NECK: Supple, trachea midline. No JVD or lymphadenopathy. CARDIOVASCULAR: Regular rate and rhythm without murmurs, gallops, or rubs. RESPIRATORY: Breath sounds equal bilaterally. No accessory muscle use. GASTROINTESTINAL: Abdomen soft, non-tender, nondistended. EXTREMITIES: No cyanosis, or edema. Strength 5/5 in all extremities except right arm below the elbow 4/5 strength and 4/5 right hand manager regional strength NEUROLOGICAL: Awake, alert, and oriented x 3. Non-focal. Medications and IVs Current Medications Medications (Trade) Dose Ordered Sig/Dominic Route Start Time Stop Time Status Last Admin Sodium Chloride 1,000 ml @ 100 mls/hr Q10H IV 03/02/17 13:11 03/03/17 00:25 (NS Flush) 2 ml UNSCH PRN IV FLUSH 03/02/17 13:15 (NS Flush) 2 ml BID IV FLUSH 03/02/17 21:00 03/03/17 07:50 (Tylenol) 650 mg Q4H PRN PO 03/02/17 13:15 (Zofran Inj) 4 mg Q6H PRN IVP 03/02/17 13:15 (Lovenox Inj) 40 mg Q24H SQ 03/02/17 16:00 Future Hold (Yoselyn-Colace) 1 tab BID PO 03/02/17 21:00 03/02/17 20:51 (Milk Of Magnesia Liq) 30 ml Q12H PRN PO 03/02/17 13:15 (Senokot) 17.2 mg Q12H PRN PO 03/02/17 13:15 (Dulcolax Supp) 10 mg DAILY PRN RECTAL 03/02/17 13:15 (Lactulose Liq) 30 ml DAILY PRN PO 03/02/17 13:15 (Narcan Inj) 0.4 mg UNSCH PRN IV 03/02/17 13:15 (Morphine Inj) 2 mg Q3H PRN IV PUSH 03/02/17 13:15 (Dilaudid Pf Inj) 0.5 mg Q3H PRN IV 03/02/17 13:15 (Toradol Inj) 15 mg Q6H PRN IVP 03/02/17 19:15 03/07/17 19:14 Lactated Ringer's 1,000 ml @ 30 mls/hr Q24H PRN IV 03/03/17 08:00 03/06/17 07:59 Sodium Chloride 500 ml @ 30 mls/hr [id number] PRN IV 03/03/17 08:00 03/06/17 07:59 (Lopressor) 25 mg [employer] PRN PO 03/03/17 08:00 03/06/17 07:59 (Betadine 5% Antisepsis Kit) 1 applic [employer] PRN EACH NARE 03/03/17 08:00 03/06/17 07:59 (Chlorhexidine 2% Cloth) 3 pack [employer] PRN TOPICAL 03/03/17 08:00 03/06/17 07:59 (NovoLIN R INJ) See Protocol Table ... [employer] PRN SQ 03/03/17 08:00 03/06/17 07:59 (Brendon Winter MD R1) Urinary Catheter: No (Brendon Winter MD R1) A/P Assessment and Plan 76 YO male w/PMHx prostate cancer and left shoulder septic joint in 2005 with fall today vs CVA resulting in mandibular fracture, lip laceration and right arm weakness. Neurology saw in ED and Head CT shows no evidence of CVA. (Brendon Winter MD R1) Attending Attestation Patient seen and examined. Case reviewed and discussed Agree with plan of care as discussed with me and documented in the resident note. (Carolyne Bustos MD) Problem List: (1) Fracture of mandible ICD Codes: S02.609A - Fracture of mandible, unspecified, initial encounter for closed fracture Status: Acute Plan: CT showing fracture of mandible. To OR this afternoon. -Oromaxillofacial surgery consulted--OR tomorrow--appreciate recs -NPO at midnight -Swallowing intact -Pain control: --Tylenol 1000mg IV --Torodol 15 mg q6h IV PRN pain 1-5 --Morphine 2 mg q4h IV PRN pain 6-10 --Dilaudid 0.1 mg IV PRN breakthru pain -AM CBC and BMP wnl -PT/OT following surgery (2) Right arm weakness ICD Codes: R29.898 - Other symptoms and signs involving the musculoskeletal system Status: Acute Plan: Right arm weakness s/p fall vs CVA; decreased strength and active ROM on exam--DDx: CVA vs fall trauma to include rotator cuff tear; CVA ruled out. [employer] strength on right hand and arm 4/5, but pt denies any pain or decrease in shoulder strength -Will follow Right forearm/hand weakness; ROM improving (3) Lip laceration ICD Codes: S01.511A - Laceration without foreign body of lip, initial encounter Status: Acute Plan: -Repaired in ED; wound intact and healing well -Monitor (4) FEN/GI/PPx Status: Acute Plan: -DVT PPx: Holding Lovenox 40 mg /day until after surgery -NPO for surgery; diet after surgery as per surgery recs -Colace and Milk of Magnesia for opioid induced constipation -Zofran IV for nausea (Brendon Winter MD R1) Problem Qualifiers (1) Fracture of mandible: Qualified Codes: S02.612A - Fracture of condylar process of left mandible, initial encounter for closed fracture (2) Lip laceration: Qualified Codes: S01.511A - Laceration without foreign body of lip, initial encounter Brendon Winter MD R1 Mar 03, 2017 15:11 Carolyne Bustos MD Mar 05, 2017 08:23
[2017-03-03] MEDS ORDERED: LIDOCAINE 2%/EPINEPHrine PF 1:200,000 20ML SDV ONE (15:34)
[2017-03-03] MEDS ORDERED: CHLORHEXIDINE GLUCONATE 0.12% 15 ML CUP ONE (15:34)
[2017-03-03] MEDS ORDERED: BUPIVACAINE/EPINEPHRINE 0.5% 50 ML VIAL ONE (15:34)
--- NOTE | 2017-03-03 17:13 | HHI.PR ---
Review/Management Diagnosis 1. Fall Possible etiology may be, orthostatic, cardiac, vs accidental [patient is adamant that this was the case, states that he was aware that he was falling due to uneven ground]. 2. Fracture of the mandible. 3. History of prostate cancer, status post radiation Plan 1. Non-focal neurologic exam 2. Negative neurologic testing for an acute intracranial abnormality 3. DVT prophylaxis. 4. Continue supportive medical and surgical treatment. 5. No further neurologic testing is warranted at this time 5. Please call for questions Diagnosis/Plan: Subjective Subjective Comments No acute events reported MRI brain was unremarkable for an acute intracranial lesion is at bed side I explained to them the finding on the brain MRI and the current neurologic status Active Medications Current Medications Medications (Trade) Dose Ordered Sig/Dominic Route Start Time Stop Time Status Last Admin Sodium Chloride 1,000 ml @ 100 mls/hr Q10H IV 03/02/17 13:11 03/03/17 00:25 (NS Flush) 2 ml UNSCH PRN IV FLUSH 03/02/17 13:15 (NS Flush) 2 ml BID IV FLUSH 03/02/17 21:00 03/03/17 07:50 (Tylenol) 650 mg Q4H PRN PO 03/02/17 13:15 (Zofran Inj) 4 mg Q6H PRN IVP 03/02/17 13:15 (Lovenox Inj) 40 mg Q24H SQ 03/02/17 16:00 Future Hold (Yoselyn-Colace) 1 tab BID PO 03/02/17 21:00 03/02/17 20:51 (Milk Of Magnesia Liq) 30 ml Q12H PRN PO 03/02/17 13:15 (Senokot) 17.2 mg Q12H PRN PO 03/02/17 13:15 (Dulcolax Supp) 10 mg DAILY PRN RECTAL 03/02/17 13:15 (Lactulose Liq) 30 ml DAILY PRN PO 03/02/17 13:15 (Narcan Inj) 0.4 mg UNSCH PRN IV 03/02/17 13:15 (Morphine Inj) 2 mg Q3H PRN IV PUSH 03/02/17 13:15 (Dilaudid Pf Inj) 0.5 mg Q3H PRN IV 03/02/17 13:15 (Toradol Inj) 15 mg Q6H PRN IVP 03/02/17 19:15 03/07/17 19:14 Lactated Ringer's 1,000 ml @ 30 mls/hr Q24H PRN IV 03/03/17 08:00 03/06/17 07:59 Sodium Chloride 500 ml @ 30 mls/hr [id number] PRN IV 03/03/17 08:00 03/06/17 07:59 (Lopressor) 25 mg DYEING MACHINE FEEDER PRN PO 03/03/17 08:00 03/06/17 07:59 (Betadine 5% Antisepsis Kit) 1 applic DYEING MACHINE FEEDER PRN EACH NARE 03/03/17 08:00 03/06/17 07:59 (Chlorhexidine 2% Cloth) 3 pack DYEING MACHINE FEEDER PRN TOPICAL 03/03/17 08:00 03/06/17 07:59 (NovoLIN R INJ) See Protocol Table ... DYEING MACHINE FEEDER PRN SQ 03/03/17 08:00 03/06/17 07:59 Allergies Allergies Coded Allergies No Known Allergies (Verified03/02/17) Review of Systems All other ROS: ROS reviewed as documented in chart Exam I&O / VS Vital Signs Date Time Temp Pulse Resp B/P (MAP) Pulse Ox O2 Delivery O2 Flow Rate FiO2 03/03/17 12:00 98.2 62 18 142/74 (96) 95 03/03/17 08:00 98.6 63 18 136/72 (93) 95 03/03/17 06:30 98.5 64 18 136/61 (86) 94 03/03/17 01:56 98.6 62 16 109/57 (74) 95 03/02/17 21:56 99.1 72 16 140/72 (94) 98 Exam Comments GENERAL: Awake, alert, oriented, not in apparent distress. HEENT: Swelling and tenderness of the right cheek area. Lower lip laceration and abrasion. Intact hearing. Intact vision. NECK: Trachea in the midline. No signs of meningeal irritation. HEART: Regular rate and rhythm. LUNGS: Clear to auscultation. No wheezes. ABDOMEN: Soft, nondistended. EXTREMITIES: No deformity. No clubbing. No cyanosis. Moves extremities with some pain in the right upper extremity. NEUROLOGIC: Awake, alert, oriented to time, person and place. No dysphasia. No dysarthria. limitation in neurologic assessment of muscle strength secondary to pain at left UE, but grossly 5/5, Intact sensation throughout to light touch and temperature. Cerebellar functions are intact. Upper and lower extremity reflexes 2+ bilateral and symmetrical. PSYCHIATRIC: Normal behavior. Appropriate mood and affect. No hallucinations. Objective Radiology Results Last 72 hours Impressions Brain MRI 03/03/17 0000 Signed Impressions: Service Date/Time: Friday, March 03, 2017 09:08 - CONCLUSION: Negative MRI of the brain without contrast. Jordy Upton MD Maxillofacial CT 03/02/17 0000 Signed Impressions: Service Date/Time: Thursday, March 02, 2017 10:34 - CONCLUSION: 1. Comminuted and mildly displaced fracture of the left mandibular ramus and base of the condyle. 2. Severe bilateral temporomandibular joint osteoarthritis. 3. Submental contusion/hematoma. Haris Yusuf MD Head CT 03/02/17 0000 Signed Impressions: Service Date/Time: Thursday, March 02, 2017 10:34 - CONCLUSION: 1. No evidence of acute intracranial pathology. No masses are identified. Enrique Marvin MD Micro and Labs Laboratory Tests Test 03/03/17 08:42 White Blood Count 7.4 Red Blood Count 4.07 Hemoglobin 13.9 Hematocrit 40.6 Mean Corpuscular Volume 99.9 Mean Corpuscular Hemoglobin 34.1 Mean Corpuscular Hemoglobin Concent 34.1 Red Cell Distribution Width 12.8 Platelet Count 176 Mean Platelet Volume 7.3 Neutrophils (%) (Auto) 72.6 Lymphocytes (%) (Auto) 16.3 Monocytes (%) (Auto) 9.2 Eosinophils (%) (Auto) 1.5 Basophils (%) (Auto) 0.4 Neutrophils # (Auto) 5.3 Lymphocytes # (Auto) 1.2 Monocytes # (Auto) 0.7 Eosinophils # (Auto) 0.1 Basophils # (Auto) 0.0 CBC Comment DIFF FINAL Differential Comment Blood Urea Nitrogen 11 Creatinine 0.88 Random Glucose 121 Calcium Level 8.5 Sodium Level 139 Potassium Level 3.9 Chloride Level 106 Carbon Dioxide Level 25.6 Anion Gap 7 Estimat Glomerular Filtration Rate 85 Mayela Sharma MD Mar 03, 2017 17:13
[2017-03-03] MEDS ORDERED: ceFAZolin INJ 1,000 MG VIAL ONE (17:37)
--- NOTE | 2017-03-03 19:03 | HHI.PR ---
Immediate Post Op Note Procedure Date: Mar 03, 2017 Pre Op Diagnosis: left subcondylar fracture Post Op Diagnosis: Surgeon: Brock Weeks Television Program Director(s): crispin meyer Procedure: closed reduction left subcondylar fracture Complications: none Specimen(s) removed: none Estimated blood loss: 10 cc Anesthesia: General, Local (2%lidocaiine with 1:200,000 epi 6 cc) Drains: None Patient to: PACU Patient Condition: Good Date/Time of Procedure: SEE SURGICAL CARE RECORD Crispin Meyer DMD Mar 03, 2017 19:03
[2017-03-03] MEDS ORDERED: MIDAZOLAM HCL 2 MG/2 ML VIAL ONE (19:18)
[2017-03-03] MEDS ORDERED: DO NOT ADM ANY ANTICOAGULANT DRUGS PRN (19:18)
[2017-03-03] MEDS ORDERED: MORPHINE SULFATE 4 MG/ML INJ IV PRN (19:30)
[2017-03-03] MEDS ORDERED: ACETAMINOPHEN 325MG/HYDROcodone 7.5MG/15ML UDC PO PRN (19:30)
[2017-03-03] MEDS ORDERED: MIDAZOLAM HCL 2 MG/2 ML VIAL IV ONE (19:30)
[2017-03-03] MEDS ORDERED: FAMOTIDINE 20 MG TAB PO ONE (19:30)
[2017-03-03] MEDS ORDERED: DEXAMETHASONE SOD PHOS 4 MG/ML VIAL IV ONE (19:30)
[2017-03-04 00:54] VITALS: BP 138/76; PULSE 65; RESP 18; TEMP 97.6; O2SAT 97
[2017-03-04] MEDS: SODIUM CHLOR 0.9% 1000 ML INJ 1,000 ML IV SCH (05:38)
[2017-03-04 06:05] VITALS: BP 146/78; PULSE 76; RESP 18; TEMP 97.2; O2SAT 94
[2017-03-04 08:30] VITALS: BP 147/72; PULSE 75; RESP 18; TEMP 97.2; O2SAT 92
--- NOTE | 2017-03-04 10:07 | MP ---
cc: BROCK HARO D.D.S., ROGER DMD DATE OF SURGERY 03/03/2017 DATE OF 1940 PREOPERATIVE DIAGNOSIS Left subcondylar fracture POSTOPERATIVE DIAGNOSIS Left subcondylar fracture PROCEDURE Closed reduction of subcondylar neck fracture. SURGEON Brock Haro DDS and Crispin Meyer DMD ANESTHESIA General anesthesia by nasotracheal tube FLUIDS 500 cc crystalloid SPECIMEN, COMPLICATIONS AND JUSTIFICATION Mr. Waller is a 76-year-old gentleman who fell while carrying some stuff, hit the ground and sustained a blow to his chin and a cut through his lip which was closed in the OR as well with 3-0 chromic gut. He sustained a left subcondylar fracture with an anterior open bite at that time. Discussion with the patient, plan was to go to the OR to put him back in as a mixed dentition so we will place an arch bar across the anterior two-thirds of the teeth. PROCEDURE On 03/03, he presents today to the [facility] area, identified by his name and his bracelet, brought back to OR #8. He was intubated by Anesthesia nasally, tube secured in position. The patient was given local anesthesia with 2% Xylocaine with epinephrine 1:200,000 epinephrine a total of 6 cc in the vestibule areas. Bertrand arch bars placed on the maxilla and mandible. Patient placed in maxillary mandibular fixation with 24-gauge wire from premolar to premolar. Three vertical wires placed for reduction of the fixation. Closure of the lip was done with 3-0 chromic gut in the lower lip. The patient was extubated and taken to the Recovery Room in stable condition. LIMA Serra/MOON /7:01 PM /9:44 AM
[2017-03-04 12:33] VITALS: BP 134/69; PULSE 66; RESP 18; TEMP 97.5; O2SAT 92
[2017-03-04 14:00] VITALS: O2SAT 96
--- NOTE | 2017-03-04 14:17 | HHI.DCPOC ---
Discharge Care Plan Diagnosis: (1) Fracture of mandible Goals to Promote Your Health * To prevent worsening of your condition and complications * To maintain your health at the optimal level Directions to Meet Your Goals Take your medications as prescribed Follow your dietary instruction Follow activity as directed Keep your appointments as scheduled Take your immunizations and boosters as scheduled If your symptoms worsen call your PCP, if no PCP go to Urgent Care Center or Emergency Room Smoking is Dangerous to Your Health. Avoid second hand smoke Call the 24-hour hour crisis hotline for domestic abuse at Abel Espinal MD, R3 Mar 04, 2017 14:17
[2017-03-04] MEDS ORDERED: HYDR1SOL6 PO (14:29)
--- NOTE | 2017-03-04 15:18 | HHI.FPPN ---
Subjective Remarks Mr. Waller was afebrile with intermittent HTN overnight; O2 saturations 92-97% on RA. Patient accompanied by his who supplemented history; patient has not reported pain postoperatively following mandibular surgery. Patient's unknowingly gave him smoothie this morning which he tolerated well. Patient his questioned regarding O2 saturation of 92%; patient has not had any cough or shortness of breath; patient walks well at home without any exertional symptoms. No chest pain, abdominal pain, or dysuria. Patient has not had BM but frequently goes 4 days between BM. Patient/ report awareness of stool softeners/motility agents but that he does not request them currently. (Abel Espinal MD, R3) Objective Vitals Vital Signs Date Time Temp Pulse Resp B/P (MAP) Pulse Ox O2 Delivery O2 Flow Rate FiO2 03/04/17 14:00 96 03/04/17 12:33 97.5 66 18 134/69 (90) 92 03/04/17 08:30 97.2 75 18 147/72 (97) 92 03/04/17 06:05 97.2 76 18 146/78 (100) 94 03/04/17 00:54 97.6 65 18 138/76 (96) 97 03/03/17 21:40 97.6 58 16 167/79 (108) 97 03/03/17 21:30 98 Nasal Cannula 1.00 03/03/17 19:30 54 9 161/77 (105) 98 Nasal Cannula 1 03/03/17 19:15 54 9 161/79 (106) 100 Nasal Cannula 3 03/03/17 19:12 97.3 56 9 162/74 (103) 100 Simple Mask 8 03/03/17 18:55 98.4 60 18 136/76 (96) 96 I/O 03/03/17 03/03/17 03/03/17 03/04/17 03/04/17 03/04/17 07:00 15:00 23:00 07:00 15:00 23:00 Intake Total 1300 ml Output Total 300 ml 10 ml 250 ml Balance -300 ml 1290 ml -250 ml Intake Oral 0 ml Other 1300 ml Output Urine Total 300 ml 250 ml Estimated Blood Loss 10 ml # Voids 8 1 # Bowel Movements 0 0 (Abel Espinal MD, R3) Result Diagram: 03/03/17 0842 03/03/17 0842 Imaging Last Impressions Brain MRI 03/03/17 0000 Signed Impressions: Service Date/Time: Friday, March 03, 2017 09:08 - CONCLUSION: Negative MRI of the brain without contrast. Jordy Upton MD Maxillofacial CT 03/02/17 0000 Signed Impressions: Service Date/Time: Thursday, March 02, 2017 10:34 - CONCLUSION: 1. Comminuted and mildly displaced fracture of the left mandibular ramus and base of the condyle. 2. Severe bilateral temporomandibular joint osteoarthritis. 3. Submental contusion/hematoma. Haris Yusuf MD Head CT 03/02/17 0000 Signed Impressions: Service Date/Time: Thursday, March 02, 2017 10:34 - CONCLUSION: 1. No evidence of acute intracranial pathology. No masses are identified. Enrique Marvin MD Objective Remarks GENERAL: Well-nourished, well-developed patient in NAD. SKIN: Warm and dry. Healing scab on left lateral knee. HEAD: Normocephalic. Healing laceration of midline lower lip. Teeth/oral cavity: wire in place; mouth can only partially open EYES: No scleral icterus. No injection or drainage. EOM grossly I NECK: Supple, trachea midline. No JVD or lymphadenopathy. CARDIOVASCULAR: Regular rate and rhythm without murmurs. No LE edema RESPIRATORY: CTAB; normal rate GASTROINTESTINAL: Abdomen soft, non-tender, nondistended. Normal BS EXTREMITIES: Strength 5/5 in extremities with exception of right arm below the elbow 4/5 strength and 4/5 right hand sr. payroll processor strength; patient able to elevate R arm above head after initial assistance from L UE in initiating movement. NEUROLOGICAL: Awake, alert, and oriented. Speech in short phrases due to impaired mouth mobility due to wiring. CN grossly intact. Grossly normal peripheral motor and sensory function with exception of right upper extremity weakness (Abel Espinal MD, R3) A/P Assessment and Plan 76 YO male w/PMHx prostate cancer and left shoulder septic joint in 2005 with fall resulting in mandibular fracture, lip laceration and right arm weakness Discharge Planning When discharged today on oral pain medication and follow up with OMFS next week (Abel Espinal MD, R3) Attending Attestation Patient seen and examined. Case reviewed and discussed Agree with plan of care as discussed with me and documented in the resident note. (Carolyne Bustos MD) Problem List: (1) Fracture of mandible ICD Codes: S02.609A - Fracture of mandible, unspecified, initial encounter for closed fracture Status: Acute Plan: Impression: Fall injury resulting mandibular injury. CT on admission: Comminuted and mildly displaced fracture of left mandibular ramus in base of condyle. Severe bilateral temporomandibular joint osteoarthritis. Submental contusion/hematoma -OMFS consulted; POD 1 following subcondylar neck fracture by Dr. Weeks -Clear liquid diet; progress to full liquid -Pain control with liquid hydrocodone/acetaminophen and morphine as needed -Plan for follow-up with Dr. Weeks in office in 1 week (2) Right arm weakness ICD Codes: R29.898 - Other symptoms and signs involving the musculoskeletal system Status: Acute Plan: Impression: Right arm weakness s/p fall; decreased strength and active ROM on exam--DDx: CVA vs fall trauma to include rotator cuff tear; CVA ruled out. Water Softener Servicer strength on right hand and arm 4/5, but pt denies any pain or decrease in shoulder strength CT head on admission- no evidence of acute intracranial pathology; no masses identified MRI brain w/ contrast- negative Reportedly negative trauma x-rays of right upper extremity; not in-EMR -Neurology consulted due to concern for possible CVA -Continue supportive medical/surgical treatment; no further neurologic testing warranted at this time due to negative neurologic testing (MRI) -PT consulted; no PT recommended (3) Lip laceration ICD Codes: S01.511A - Laceration without foreign body of lip, initial encounter Status: Acute Plan: -Repaired in ED; wound intact and healing well -Monitor (4) HTN (hypertension) ICD Codes: I10 - Essential (primary) hypertension Plan: Impression: Intermittent mild hypertension during hospitalization; not on medication. Discussed with patient/; they check his pressure at home and it is usually below systolic of 130/140 -Discussed need to monitor and consider follow-up with PCP upon discharge (5) Oxygen saturation greater than 90% ICD Codes: R06.89 - Other abnormalities of breathing Plan: Impression: Intermittent O2 sat 92% on room air during hospitalization; no known pulmonary disease. Suspect atelectasis and/or nasal congestion with impaired inspiration due to mouth requiring -Discussed finding with patient; patient's will continue to check O2 sat at home and follow-up with PCP -Discussed with nursing staff; will recheck O2 sat and consider home O2 walk test/XR/further evaluation if again low (6) FEN/GI/PPx Status: Acute Plan: -DVT PPx: ambulatory without need for anticoagulation at home; anticipate discharge today -Diet: Full liquid Electrolytes on admission WNL with exception of mild hyperglycemia -Colace and Milk of Magnesia for opioid induced constipation -Zofran IV for nausea (Abel Espinal MD, R3) Remarks Discussed case with Dr. Weeks prior to knowledge of written orders in chart; patient cleared for discharge with plans to f/u in 1 week (Abel Espinal MD, R3) Problem Qualifiers (1) Fracture of mandible: Qualified Codes: S02.612A - Fracture of condylar process of left mandible, initial encounter for closed fracture (2) Lip laceration: Qualified Codes: S01.511A - Laceration without foreign body of lip, initial encounter Abel Espinal MD, R3 Mar 04, 2017 15:18 Carolyne Bustos MD Mar 05, 2017 08:26
== END 2017-03-04 15:18 | disposition home or self-care (01) | DRG 159 ==
LOC: NEPD 09:58 → NEDA 12:31 → N05A 17:07
PROVIDERS: ADMIT Family Medicine; ATTEND Family Medicine
PROC: 0CQ1XZZ Repair Lower Lip, External Approach (ICD-10-PCS; 2017-03-02)
PROC: [UNRECOGNIZED PROCEDURE] (2017-03-03)
PROC: 0NSVXZZ Reposition Left Mandible, External Approach (ICD-10-PCS; principal; 2017-03-03 18:10)
DX: S02.612A Fracture of condylar process of left mandible, initial encounter for closed fracture (principal); I10 Essential (primary) hypertension; S01.511A Laceration without foreign body of lip, initial encounter; M79.601 Pain in right arm; W18.30XA Fall on same level, unspecified, initial encounter; Z85.46 Personal history of malignant neoplasm of prostate; Z79.82 Long term (current) use of aspirin; Z92.3 Personal history of irradiation; Y92.481 Parking lot as the place of occurrence of the external cause
CPT/HCPCS: 12011; 70450; 70486; 70551; 80048; 82435; 82550; 82565; 82947; 84132; 84295; 84520; 85025; 85384; 85610; 85730; 86850; 86900; 86901; 93005; 96361; 96374; 96375; J0131; J0690; J1100; J2250; J2270; J2405; J2710; J3010; J7030; J7120